=== PATIENT | female | born 1980 ===

== ENCOUNTER 2018-04-21 03:43 | Emergency (ER) | payer SELFPAY ==
[~2018-04-21] VITALS: Ht 154.9 cm; Wt 59.0 kg
[2018-04-21 03:47] VITALS: BP 151/78; Ht 154.9 cm; Wt 59.0 kg
== END 2018-04-21 04:05 | disposition other institution (70) ==
LOC: ED 03:43
DX: F41.9 Anxiety disorder, unspecified (principal); R20.2 Paresthesia of skin; Z90.49 Acquired absence of other specified parts of digestive tract

== ENCOUNTER 2018-04-21 03:43 | Emergency (ER) | payer OTHER | END 2018-04-21 04:05 | disposition other institution (70) | LOC: ED 03:43 | DX: Z02.89 Encounter for other administrative examinations (principal) ==